=== PATIENT | female | born 1990 | race American Indian/Alaskan Native ===

== ENCOUNTER 2017-01-20 17:27 | Inpatient (IN) | payer MEDICAID ==
[2017-01-20] MEDS ORDERED: LACTATED RINGERS 500 ML IV ONE (17:30)
[2017-01-20 18:00] LABS: Bilirubin,Urine NEG (Negative); Blood,Urine SM (Negative); Ketones,Urine NEG (Negative); Leukocyte Esterase,Urine NEG (Negative); Nitrite,Urine NEG (Negative); Protein,Urine <15 mg/dL mg/dL (Negative); Urobilinogen,Urine < 2.0 mg/dL (<2.0); WBC,Urine < 1.0 /HPF (0.0-6.0)
[2017-01-20] MEDS ORDERED: SUDAFED PO PRN (21:05)
[2017-01-20] MEDS ORDERED: DEEP SEA NS PRN (21:05)
[2017-01-20] MEDS ORDERED: MYLICON PO PRN (21:05)
[2017-01-20] MEDS ORDERED: MAGNESIUM SULFATE 4GM/100ML 4 GM/100 ML BAG IV ONE (21:05)
[2017-01-20] MEDS ORDERED: BENADRYL PO PRN (21:05)
[2017-01-20] MEDS ORDERED: ROBITUSSIN DM PO PRN (21:05)
[2017-01-20] MEDS ORDERED: MILK OF MAGNESIA PO PRN (21:05)
[2017-01-20] MEDS ORDERED: ALUM-MAG HYDROX-SIMETH 200-200-20MG/5ML PO PRN (21:05)
--- NOTE | 2017-01-20 21:12 | History and Physical Report ---
History of Present Illness Date of examination: 01/20/17 Chief complaint: I have pressure History of present illness: Patient is a 26 year old who presents at 30.5 weeks with complaint of vaginal pressure and contractions. Patient has a history of a delivery at 33 weeks. She also has a history of an IUFD at 35 weeks. Her records are not available for review. Past History Past Medical History: no pertinent history Family/Genetic History: none Social history: single - Obstetrical History Expected Date of Delivery: 03/26/17 Actual Gestation: 30 Week(s) 5 Day(s) : 5 Para: 4 Hx # Term Pregnancies: 2 Number of Pregnancies: 2 Number of Living Children: 3 Medications and Allergies Allergies Allergy/AdvReac Type Severity Reaction Status Date / Time No Known Allergies Allergy Verified 01/20/17 17:29 Home Medications Medication Instructions Recorded Confirmed Last Taken Type HYDROcodone/APAP 5-325 [[place] 1 each PO Q6HR PRN #20 tablet 03/11/16 Unknown Rx 5/325] Ibuprofen [Motrin] 800 mg PO Q6HR PRN #30 tablet 03/11/16 Unknown Rx Active Meds: Active Medications Lactated Ringer's (Lactated Ringers) 1,000 mls @ 75 mls/hr IV DIRECT LOTUS - Vital Signs Vital signs: Vital Signs Pulse Pulse Ox 87 99 01/20/17 17:27 01/20/17 17:27 Temp Pulse Resp BP Pulse Ox 97.6 F 88 20 114/68 97 01/20/17 17:41 01/20/17 20:14 01/20/17 17:41 01/20/17 17:41 01/20/17 20:14 - Physical Exam Cardiovascular: Regular rate, Normal S1, Normal S2 Lungs: Positive: Clear to auscultation Abdomen: Positive: normal appearance, soft, normal bowel sounds Genitourinary (Female): Positive: normal external genitalia, normal perenium Vagina: Positive: normal moisture Uterus: Positive: normal size, normal contour - Obstetrical Cervical Dilatation: 3 Cervical Effacement Percentage: 70 station: -3 Uterine Contraction Pattern: Irregular Uterine Tone Measurement Phase: Resting Uterine Contraction Intensity: Mild Results Abnormal lab results 01/20/17 Range/Units 17:30 Urine pH 8.0 H (5.0-7.0) All other labs normal. Assessment and Plan IUP at 30.5 here with labor and cervical dilation. Admit for management of labor.Give steroids. Will begin mag. Bedrest. Consult NICU.
[2017-01-20] MEDS ORDERED: CELESTONE SOLUSPAN IM ONE (21:17)
[2017-01-20 21:30] LABS: Hematocrit 34.7 % (30.3-42.9); Hemoglobin 11.6 gm/dl (10.1-14.3); Mean Corpuscular HGB Conc 34 % (30-34); Mean Corpuscular Hemoglobin 34 pg (28-32); Mean Corpuscular Volume 102 fl (79-97); Red Blood Count 3.39 M/mm3 (3.65-5.03); Red Cell Distribution Width 12.7 % (13.2-15.2); White Blood Count 11.3 K/mm3 (4.5-11.0)
[2017-01-20] MEDS ORDERED: CELESTONE SOLUSPAN IM SCH (21:30)
[2017-01-20 21:32] LABS: Platelet Count 171 K/mm3 (140-440)
[2017-01-20 21:37] LABS: Urine Drugs of Abuse Note Disclamer
[2017-01-20] MEDS: LACTATED RINGERS 1,000 ML IV SCH (22:48)
[2017-01-20 22:59] LABS: Basophils % (Auto) 0.3 % (0.0-1.8); Eosinophils % (Auto) 0.2 % (0.0-4.3); Hematocrit 32.7 % (30.3-42.9); Hemoglobin 10.7 gm/dl (10.1-14.3); Mean Corpuscular HGB Conc 33 % (30-34); Mean Corpuscular Hemoglobin 34 pg (28-32); Mean Corpuscular Volume 104 fl (79-97); Platelet Count 168 K/mm3 (140-440); Red Blood Count 3.16 M/mm3 (3.65-5.03); Red Cell Distribution Width 12.8 % (13.2-15.2); White Blood Count 14.1 K/mm3 (4.5-11.0)
[2017-01-20] MEDS: MAGNESIUM SULFATE 40GM/1000ML 40 GM/1,000 ML BAG IV SCH (23:26)
[2017-01-21] MEDS: AMBIEN PO PRN ×2 (03:17→23:51)
[2017-01-21] MEDS: TYLENOL PO PRN (08:32)
[2017-01-21] MEDS: PRENATAL VITAMIN PO SCH (10:05)
[2017-01-21] MEDS ORDERED: EMLA TP ONE (11:17)
[2017-01-21] MEDS: LACTATED RINGERS 1,000 ML IV SCH ×2 (11:30→23:52)
[2017-01-21] MEDS ORDERED: EMLA TP NR (12:00)
[2017-01-21] MEDS: MAGNESIUM SULFATE 40GM/1000ML 40 GM/1,000 ML BAG IV SCH (14:08)
--- NOTE | 2017-01-21 22:46 | Progress Note ---
Assessment and Plan HD 1 for this at 30.6 weeks for labor. Patient is currently on mag therapy. She had one dose of steroids last night and will receive her second one this evening. Will also discontinue the magnesium tonight. Continue current management. Subjective - Subjective Date of service: 01/21/17 Interval history: Patient is a 26 year old who presents at 30.5 weeks with complaint of vaginal pressure and contractions. Patient has a history of a delivery at 33 weeks. She also has a history of an IUFD at 35 weeks. Her records are not available for review. Patient reports: new complaints (headache) Objective - Vital Signs Vital Signs: Vital Signs - 12hr 01/21/17 01/21/17 01/21/17 11:30 12:30 12:33 Temperature 97.2 F L Pulse Rate 100 H 90 86 Respiratory 18 Rate Blood Pressure 115/59 111/65 111/65 O2 Sat by Pulse 100 Oximetry 01/21/17 01/21/17 01/21/17 13:30 14:30 15:31 Temperature Pulse Rate 94 H 96 H 105 H Respiratory Rate Blood Pressure 109/65 106/59 105/46 O2 Sat by Pulse Oximetry 01/21/17 01/21/17 01/21/17 16:30 19:20 19:21 Temperature 97.1 F L Pulse Rate 83 102 H 102 H Respiratory 18 Rate Blood Pressure 116/61 114/60 114/60 O2 Sat by Pulse Oximetry 01/21/17 01/21/17 20:57 21:56 Temperature Pulse Rate 105 H 110 H Respiratory Rate Blood Pressure 110/62 93/53 O2 Sat by Pulse Oximetry - Exam Breasts: deferred Cardiovascular: Regular rate, Normal S1, Normal S2 Lungs: Clear to auscultation Abdomen: Present: normal appearance, soft, normal bowel sounds Uterus: Present: normal, firm, fundal height above umbilicus FHR: auscultation normal Uterine Contraction Pattern: Absent (occasional) Uterine Tone Measurement Phase: Resting Uterine Contraction Intensity: Mild Extremities: normal Deep Tendon Reflex Grade: Normal +2 - Labs Labs: Abnormal Labs 01/20/17 01/20/17 01/20/17 17:30 20:45 21:34 WBC 11.3 H 14.1 H RBC 3.39 L 3.16 L MCV 102 H 104 H MCH 34 H 34 H RDW 12.7 L 12.8 L [place] # 1.0 H Seg Neutrophils % 73.8 H Seg Neutrophils # 10.4 H Magnesium Urine pH 8.0 H 01/21/17 19:58 WBC RBC MCV MCH RDW [place] # Seg Neutrophils % Seg Neutrophils # Magnesium 5.90 H Urine pH Laboratory Results - last 24 hr 01/20/17 01/21/17 21:34 19:58 WBC 14.1 H RBC 3.16 L Hgb 10.7 Hct 32.7 MCV 104 H MCH 34 H MCHC 33 RDW 12.8 L Plt Count 168 Lymph % (Auto) 18.4 [place] % (Auto) 7.3 Eos % (Auto) 0.2 Baso % (Auto) 0.3 Lymph # 2.6 [place] # 1.0 H Eos # 0.0 Baso # 0.0 Seg Neutrophils % 73.8 H Seg Neutrophils # 10.4 H Magnesium 5.90 H
--- NOTE | 2017-01-22 07:48 | Ultrasound Report ---
ULTRASOUND OB FOLLOWUP History: well-being. Technique: Transabdominal ultrasound with Doppler interrogation. Gestation: Single Position: Cephalic Amniotic Fluid: Normal ROSA ELENA = 15.1 cm Placenta: Fundal Placental Grade: 1 Heart Rate: 152 BPM BPD: 7.8 cm = 31 w 1 d HC: 28.1 cm = 30 w 5 d AC: 26.5 cm = 30 w 4 d FL: 5.9 cm = 30 w 4 d HC/AC Ratio: 1.06 Estimated Weight: 1626 grams LMP: Uncertain US Gest. Age = 30 w 5 d EDC: 03/26/17
[2017-01-22] MEDS: LACTATED RINGERS 1,000 ML IV SCH ×3 (08:27→22:59)
--- NOTE | 2017-01-22 08:52 | Progress Note ---
Assessment and Plan A: IUP at 31w0d, labor s/p magnesium and 2 doses of betamethasone P: Procardia tocolysis. MFM consult. Continue observation. Subjective - Subjective Date of service: 01/22/17 Principal diagnosis: 1) IUP at 31w0d 2) Labor Interval history: Pt feels contra Patient reports: contractions (irregular ), no new complaints Objective - Vital Signs Vital Signs: Vital Signs - 12hr 01/21/17 01/21/17 01/21/17 20:57 21:00 21:56 Temperature 97.6 F Pulse Rate 105 H 105 H 110 H Respiratory 18 Rate Blood Pressure 110/62 110/62 93/53 01/21/17 01/21/17 01/22/17 22:56 23:56 00:00 Temperature 97.2 F L Pulse Rate 101 H 104 H 104 H Respiratory 18 Rate Blood Pressure 116/57 117/67 117/67 01/22/17 01/22/17 01/22/17 00:56 01:56 02:56 Temperature Pulse Rate 105 H 107 H 105 H Respiratory Rate Blood Pressure 99/50 107/56 109/57 01/22/17 01/22/17 01/22/17 03:56 04:34 04:35 Temperature 97.2 F L Pulse Rate 97 H 95 H 95 H Respiratory 18 Rate Blood Pressure 110/52 122/56 122/56 01/22/17 08:01 Temperature 97.5 F L Pulse Rate 80 Respiratory 18 Rate Blood Pressure 114/58 - Exam Breasts: deferred Cardiovascular: Regular rate Lungs: Clear to auscultation Abdomen: Present: soft Uterus: Present: normal (gravid ) FHR: auscultation normal Uterine Contraction Monitor Mode: External Uterine Contraction Pattern: Irregular Uterine Tone Measurement Phase: Resting Extremities: normal - Labs Labs: Abnormal Labs 01/20/17 01/20/17 01/20/17 17:30 20:45 21:34 WBC 11.3 H 14.1 H RBC 3.39 L 3.16 L MCV 102 H 104 H MCH 34 H 34 H RDW 12.7 L 12.8 L [place] # 1.0 H Seg Neutrophils % 73.8 H Seg Neutrophils # 10.4 H Magnesium Urine pH 8.0 H 01/21/17 19:58 WBC RBC MCV MCH RDW [place] # Seg Neutrophils % Seg Neutrophils # Magnesium 5.90 H Urine pH Laboratory Results - last 24 hr 01/21/17 19:58 Magnesium 5.90 H
[2017-01-22] MEDS: PROCARDIA*For Tocolysis only PO SCH ×3 (09:18→21:46)
[2017-01-22] MEDS: PRENATAL VITAMIN PO SCH (09:18)
--- NOTE | 2017-01-22 15:18 | Admit Criteria Form ---
Admission Criteria Documentation: LABOR, THREATENED Clinical Indications for Admission to Inpatient Care (Place 'X' for any and all applicable criteria): Admission to inpatient status for two mid-nights or more is indicated for ANY ONE of the following 1,2,3: [ ]I. Condition requiring premature delivery (eg, premature rupture of membranes with nonreassuring status, chorioamnionitis) [A]. See Vaginal Delivery guideline as appropriate [ ]II. premature rupture of membranes (PPROM) (eg, for monitoring of well-being, development of chorioamnionitis)[A][B] [ ]III. distress or demise [ ]IV. Significant maternal disease (eg, infection) identified (eg, pyelonephritis, pneumonia) that requires initial inpatient treatment (eg, IV antibiotics, close monitoring) [ ]V. Significant vaginal bleeding or any vaginal bleeding with known placental previa, vasa previa, or placenta accreta.(7)(8) See Delivery guideline as appropriate. [ ]. Complications of tocolytic treatment (eg, pulmonary edema, hypotension) (9)(10) [X ]VII. Inpatient admission required rather than observation care (Also use Labor, Threatened: Observation Care Criteria as appropriate) because of 1 or more of the following: []a) Continued monitoring that requires inpatient care [ X]b) Tocolytic therapy needed that requires inpatient care [ ]c) Inability to stop labor. See Vaginal Delivery or Delivery guideline as appropriate. Extended stay beyond goal length of stay may be needed for (1)(2) [ ]a) Significant infection (eg, pneumonia,chorioamnionitis)(17) [ ]b) Continued uterine contractions [ ]c) demise [ ]d) Continued vaginal bleeding or placental abnormality [ ]e) Complications of tocolytic treatment (eg, pulmonary edema, hypotension)( 15) [ ]f) Expectant management of premature rupture of membranes[A] The original [employer] content created by Talya Ryan has been revised. The portions of the content which have been revised are identified through the use of italic text or in bold, and Talya Ryan has neither reviewed nor approved the modified material. All other unmodified content is copyright [facility]. Please see references footnoted in the original [facility] edition 2017 Admission Criteria Met: Yes
[2017-01-22] MEDS: COLACE PO PRN (15:36)
--- NOTE | 2017-01-22 18:38 | Consultation ---
History of Present Illness Consult date: 01/22/17 Requesting physician: CHELSEA JANSEN Reason for consult: contractions History of present illness: Admission Diagnosis: Patient is a 26 year old who presents at 31 weeks with complaint of vaginal pressure and contractions. Patient has a history of a delivery at 33 weeks. She also has a history of an IUFD at 35 weeks. Her records are not available for review. labor s/p previous admission with betamethasone x 2 and magensium administration. Nausea and Vomiting. Patient describes contractions over the last 3-4 days. She denies vaginal bleeding or fluid leakage per vagina. Patient describes improvement in symptoms from admission. SVE: 3 cm. Past History Past Medical History: no pertinent history Family/Genetic History: none - Obstetrical History : 5 Medications and Allergies Allergies Allergy/AdvReac Type Severity Reaction Status Date / Time No Known Allergies Allergy Verified 01/20/17 17:29 Home Medications Medication Instructions Recorded Confirmed Last Taken Type HYDROcodone/APAP 5-325 [[place] 1 each PO Q6HR PRN #20 tablet 03/11/16 Unknown Rx 5/325] Ibuprofen [Motrin] 800 mg PO Q6HR PRN #30 tablet 03/11/16 Unknown Rx Active Meds: Active Medications Acetaminophen (Tylenol) 650 mg PO Q4H PRN PRN Reason: Pain MILD(1-3)/Fever >100.5/CUELLAR Last Admin: 01/21/17 08:32 Dose: 650 mg Al Hydrox/Mg Hydrox/Simethicone (Alum-Mag Hydrox-Simeth [phone]/5ml) 30 ml PO Q6H PRN PRN Reason: Indigestion Diphenhydramine HCl (Benadryl) 25 mg PO Q6H PRN PRN Reason: Itching Docusate Sodium (Colace) 100 mg PO Q12H PRN PRN Reason: Constipation Last Admin: 01/22/17 15:36 Dose: 100 mg Guaifenesin (Robitussin Dm) 10 ml PO Q6H PRN PRN Reason: Cough Lactated Ringer's (Lactated Ringers) 1,000 mls @ 75 mls/hr IV DIRECT LOTUS Last Admin: 01/22/17 15:37 Dose: 75 mls/hr Lactated Ringer's (Lactated Ringers) 1,000 mls @ 125 mls/hr IV DIRECT LOTUS Magnesium Hydroxide (Milk Of Magnesia) 30 ml PO QHS PRN PRN Reason: Laxative Effect Multivitamins/Iron/Calcium ( Vitamin) 1 each PO QDAY [facility] Last Admin: 01/22/17 09:18 Dose: 1 each Nifedipine (Procardia*For Tocolysis Only*) 10 mg PO TID [facility] Last Admin: 01/22/17 14:52 Dose: 10 mg Pseudoephedrine HCl (Sudafed) 30 mg PO Q4H PRN PRN Reason: Nasal Congestion Simethicone (Mylicon) 80 mg PO Q6H PRN PRN Reason: Gas pain Sodium Chloride (Deep Sea) 2 spray NS Q4H PRN PRN Reason: Congestion Zolpidem Tartrate (Ambien) 10 mg PO ONCE PRN PRN Reason: Sleep Last Admin: 01/21/17 03:17 Dose: 10 mg - Vital Signs Vital signs: Vital Signs Pulse Pulse Ox 87 99 01/20/17 17:27 01/20/17 17:27 Temp Pulse Resp BP Pulse Ox 98.4 F 89 18 108/55 97 01/22/17 15:40 01/22/17 17:01 01/22/17 15:40 01/22/17 15:40 01/22/17 17:01 Results Result Diagrams: 01/20/17 21:34 Abnormal lab results 01/21/17 Range/Units 19:58 Magnesium 5.90 H (1.7-2.3) mg/dL All other labs normal. Assessment and Plan ASSESSMENT: * IUP at 31 weeks. * labor s/p previous admission with betamethasone x 2 and magensium administration * Rule out labor. RECOMMENDATIONS & CONSULTATION: * Magnesium sulfate tocolysis * Betamethasone 12 mg IM x 1 dose since last dose more than 7 days ago * Ultrasound for presentation and well being * Closely monitor maternal and status * Call [facility] PRN a change in maternal or status. Thank you for allowing us to participate in the care of this patient. We look forward to the opportunity to assist in her continued management. If you have any questions, please contact our office at [phone]. Chuk[place]uma I. Onyeije, M.D.
[2017-01-22] MEDS: AMBIEN PO PRN (22:58)
[2017-01-23] MEDS: LACTATED RINGERS 1,000 ML IV SCH ×2 (08:16→18:37)
[2017-01-23] MEDS: PROCARDIA*For Tocolysis only PO SCH ×3 (08:16→22:55)
[2017-01-23] MEDS: PRENATAL VITAMIN PO SCH (10:53)
--- NOTE | 2017-01-23 17:14 | Progress Note ---
Assessment and Plan - Patient Problems (1) labor Current Visit: Yes Status: Acute Qualifiers: labor trimester: P labor delivery status: P Fetus number : F Plan to address problem: secondary to the frequency of the contraction pattern, will continue to monitor patient as inpatient for now Subjective - Subjective Date of service: 01/23/17 Principal diagnosis: 1) IUP at 31w0d 2) Labor Interval history: 26y/o @ 31+ weeks admitted for labor. The patient has completed steroid series and magnesium tocolysis. Today she complains of intermittent contractions. [place] this am demonstrated contractions every 4-6 min. She denies any vaginal bleeding or LOF. Patient reports: contractions (irregular ), no new complaints Objective - Vital Signs Vital Signs: Vital Signs - 12hr 01/23/17 01/23/17 01/23/17 08:00 08:19 11:37 Temperature 97.4 F L Pulse Rate 90 90 95 H Respiratory 20 Rate Blood Pressure 108/57 108/57 106/55 - Labs Labs: Abnormal Labs 01/20/17 01/20/17 01/20/17 17:30 20:45 21:34 WBC 11.3 H 14.1 H RBC 3.39 L 3.16 L MCV 102 H 104 H MCH 34 H 34 H RDW 12.7 L 12.8 L [place] # 1.0 H Seg Neutrophils % 73.8 H Seg Neutrophils # 10.4 H Magnesium Urine pH 8.0 H 01/21/17 19:58 WBC RBC MCV MCH RDW [place] # Seg Neutrophils % Seg Neutrophils # Magnesium 5.90 H Urine pH
[2017-01-24] MEDS: AMBIEN PO PRN (00:39)
[2017-01-24] MEDS: PROCARDIA*For Tocolysis only PO SCH ×2 (08:04→14:51)
[2017-01-24] MEDS: TYLENOL PO PRN (08:04)
[2017-01-24] MEDS: COLACE PO PRN (09:48)
[2017-01-24] MEDS: PRENATAL VITAMIN PO SCH (09:48)
--- NOTE | 2017-01-24 13:33 | Progress Note ---
Assessment and Plan A/P ASSESSMENT: * IUP at 31+1 weeks. * labor s/p previous admission with betamethasone x 2 and magensium administration * Rule out labor. * Magnesium sulfate tocolysis * Betamethasone 12 mg IM x 1 dose since last dose more than 7 days ago * Closely monitor maternal and status * Await M for recommendations Subjective - Subjective Date of service: 01/24/17 Principal diagnosis: 1) IUP at 31w0d 2) Labor Patient reports: contractions (irregular ), no new complaints, no vaginal bleeding Objective - Vital Signs Vital Signs: Vital Signs - 12hr 01/24/17 01/24/17 01/24/17 06:16 07:29 07:31 Temperature 98.5 F Pulse Rate 90 86 86 Respiratory 18 Rate Blood Pressure 110/56 107/57 107/57 01/24/17 01/24/17 12:14 12:17 Temperature 98.4 F Pulse Rate 94 H 94 H Respiratory 18 Rate Blood Pressure 108/68 108/68 - Exam Breasts: normal Cardiovascular: Regular rate, Normal S1 Lungs: Clear to auscultation, Normal air movement Abdomen: Present: normal appearance, soft, normal bowel sounds. Absent: distention, tenderness Vulva: both: normal Uterus: Present: normal, firm, fundal height above umbilicus. Absent: bogginess , tenderness FHR: category 1 Uterine Contraction Monitor Mode: External Cervical Dilatation: 3 Uterine Contraction Pattern: Irregular Uterine Contraction Intensity: Mild Extremities: normal Deep Tendon Reflex Grade: Normal +2 - Labs Labs: Abnormal Labs 01/20/17 01/20/17 01/20/17 17:30 20:45 21:34 WBC 11.3 H 14.1 H RBC 3.39 L 3.16 L MCV 102 H 104 H MCH 34 H 34 H RDW 12.7 L 12.8 L [place] # 1.0 H Seg Neutrophils % 73.8 H Seg Neutrophils # 10.4 H Magnesium Urine pH 8.0 H 01/21/17 19:58 WBC RBC MCV MCH RDW [place] # Seg Neutrophils % Seg Neutrophils # Magnesium 5.90 H Urine pH
--- NOTE | 2017-01-24 13:46 | Event Note ---
Date: 01/24/17 patient without complaints NST cat 1 Pelvic 2- /high continue continuous efm continue procardia as prescribed await MFM recommendations
[2017-01-24 16:14] VITALS: BP 102/55
--- NOTE | 2017-01-24 16:32 | Consultation ---
History of Present Illness Consult date: 01/24/17 Reason for consult: contractions History of present illness: Consulting Physician: Jj Duque M.D. Admitting Physicians: Dr. Lizzie Baxter Admission Diagnosis: Patient is a 26 year old who presents at 31 weeks with complaint of vaginal pressure and contractions. Patient has a history of a delivery at 33 weeks. She also has a history of an IUFD at 35 weeks. Her records are not available for review. labor s/p previous admission with betamethasone x 2 and magensium administration. Nausea and Vomiting. Patient describes contractions over the last 3-4 days. She denies vaginal bleeding or fluid leakage per vagina. Patient describes improvement in symptoms from admission. Past History Past Medical History: no pertinent history Family/Genetic History: none - Obstetrical History : 5 Medications and Allergies Allergies Allergy/AdvReac Type Severity Reaction Status Date / Time No Known Allergies Allergy Verified 01/20/17 17:29 Home Medications Medication Instructions Recorded Confirmed Last Taken Type HYDROcodone/APAP 5-325 [[place] 1 each PO Q6HR PRN #20 tablet 03/11/16 01/23/17 Unknown Rx 5/325] Ibuprofen [Motrin] 800 mg PO Q6HR PRN #30 tablet 03/11/16 01/23/17 Unknown Rx NIFEdipine 10 mg PO TID #90 cap 01/23/17 Unknown Rx Active Meds: Active Medications Acetaminophen (Tylenol) 650 mg PO Q4H PRN PRN Reason: Pain MILD(1-3)/Fever >100.5/CUELLAR Last Admin: 01/24/17 08:04 Dose: 650 mg Al Hydrox/Mg Hydrox/Simethicone (Alum-Mag Hydrox-Simeth [phone]/5ml) 30 ml PO Q6H PRN PRN Reason: Indigestion Diphenhydramine HCl (Benadryl) 25 mg PO Q6H PRN PRN Reason: Itching Docusate Sodium (Colace) 100 mg PO Q12H PRN PRN Reason: Constipation Last Admin: 01/24/17 09:48 Dose: 100 mg Guaifenesin (Robitussin Dm) 10 ml PO Q6H PRN PRN Reason: Cough Lactated Ringer's (Lactated Ringers) 1,000 mls @ 75 mls/hr IV DIRECT [facility] Last Admin: 01/22/17 15:37 Dose: 75 mls/hr Lactated Ringer's (Lactated Ringers) 1,000 mls @ 125 mls/hr IV DIRECT [facility] Last Admin: 01/23/17 18:37 Dose: 125 mls/hr Magnesium Hydroxide (Milk Of Magnesia) 30 ml PO QHS PRN PRN Reason: Laxative Effect Multivitamins/Iron/Calcium ( Vitamin) 1 each PO QDAY [facility] Last Admin: 01/24/17 09:48 Dose: 1 each Nifedipine (Procardia*For Tocolysis Only*) 10 mg PO TID [facility] Last Admin: 01/24/17 14:51 Dose: 10 mg Pseudoephedrine HCl (Sudafed) 30 mg PO Q4H PRN PRN Reason: Nasal Congestion Simethicone (Mylicon) 80 mg PO Q6H PRN PRN Reason: Gas pain Sodium Chloride (Deep Sea) 2 spray NS Q4H PRN PRN Reason: Congestion Zolpidem Tartrate (Ambien) 10 mg PO ONCE PRN PRN Reason: Sleep Last Admin: 01/24/17 00:39 Dose: 10 mg - Vital Signs Vital signs: Vital Signs Pulse Pulse Ox 87 99 01/20/17 17:27 01/20/17 17:27 Temp Pulse Resp BP Pulse Ox 98.3 F 100 H 18 102/55 98 01/24/17 16:15 01/24/17 16:15 01/24/17 16:15 01/24/17 16:15 01/23/17 04:11 Results Result Diagrams: 01/20/17 21:34 All other labs normal. Assessment and Plan ASSESSMENT: IUP at 31 weeks. labor s/p previous admission with betamethasone x 2 and magensium administration Rule out labor. FHR tracing Category 2; now category 1 Given the current findings, the likelihood for imminent premature delivery appears small. RECOMMENDATIONS 1. Current symptoms and objective findings place this patient at risk for . 2. Based on her EGA we are in agreement with steroids to enhance lung maturation (previously performed) 3. Monitor for continued contractions. 4. I would discourage use of tocolysis at this gestational age due to the risk /benefit equations for these medications at this gestational age. 5. Patient has completed the course of steroids to enhance lung maturity 6. Please consider discharging patient home and schedule a follow-up appointment with [facility] within one week if stable in 24 hours.. 7. Proceed with delivery for obstetrical indications or progressive labor. Thank you for allowing us to participate in the care of this patient. We look forward to the opportunity to assist in her continued management. If you have any questions, please contact our office at [phone]. Jj Duque M.D.
--- NOTE | 2017-01-24 17:34 | Discharge Summary ---
Providers - Providers Date of Admission: 01/20/17 21:07 Date of discharge: 01/24/17 Attending physician: CHELSEA JANSEN 01/20/17 Consult to Case Management [CONS] Routine Services Needed at Discharge: Home Health Services Notified:: CANDY Phone number called:: [phone] Was contact made?: Yes If yes, spoke with:: CANDY Time called:: 11:50 01/22/17 08:52 Consult to Physician [CONS] Routine Consulting Provider: CORBY EVANS Reason For Exam: IUP at 30 wks, labor Place consult to:: SAMANTHA Notified:: OFFICE Phone number called:: [phone] Was contact made?: Yes If yes, spoke with:: LYUDMILA Time called:: 11:50 Primary care physician: IRA KNOX Hospitalization Reason for admission: labor Hospital course: Patient was admitted and noted to be dilated and masha. She was given steroids and mag and started on procardia. The patient did well for >24 hrs and found to be stable. She is discharged home in stable condition to followup with [facility] in 1 week and [facility]. Discharged home in stable condition Disposition: DC-30 STILL A PATIENT Plan - Discharge Medications Prescriptions: NIFEdipine 10 mg PO TID #90 cap - Provider Discharge Summary Activity: routine Diet: routine Instructions: routine Additional instructions: [] Smoking cessation referral if applicable(refer to patient education folder for contact #) [] Refer to [facility]'s [facility] Booklet Call your doctor immediately for: * Fever > 100.5 * Heavy vaginal bleeding ( >1 pad per hour) * Severe persistent headache * Shortness of breath * Reddened, hot, painful area to leg or breast * Drainage or odor from incision. * Keep incision clean and dry at all times and follow doctor's instructions regarding bathing/showering - Follow up plan Follow up: IRA KNOX MD [Primary Care Provider] - 7 Days Forms: [facility] Discharge Summary, Work/School Excuse Out Patient, Work/School Release Form
== END 2017-01-24 18:50 | disposition home or self-care (01) | DRG 778 ==
LOC: TRG 17:27 → LD 21:07
PROVIDERS: ADMIT Obstetrics & Gynecology; ATTEND Obstetrics & Gynecology
DX: O60.03 Preterm labor without delivery, third trimester (principal); Z3A.31 31 weeks gestation of pregnancy
CPT/HCPCS: 36415; 59025; 76816; 80307; 81001; 83735; 85025; 85027; 86850; 86900; 86901; 96360; 96361; J0702; J3475; J7120

== ENCOUNTER 2017-02-08 00:31 | Inpatient (IN) | payer MEDICAID ==
[2017-02-08] MEDS ORDERED: COLACE PO PRN (01:27)
[2017-02-08] MEDS ORDERED: BENADRYL PO PRN ×2 (01:27→12:34)
[2017-02-08] MEDS ORDERED: TYLENOL PO PRN ×2 (01:27→12:34)
[2017-02-08] MEDS ORDERED: AMBIEN PO PRN (01:27)
[2017-02-08] MEDS ORDERED: DEEP SEA NS PRN (01:27)
[2017-02-08] MEDS ORDERED: CELESTONE SOLUSPAN IM ONE (01:27)
[2017-02-08] MEDS ORDERED: MYLICON PO PRN (01:27)
[2017-02-08] MEDS ORDERED: ZOFRAN IV PRN ×2 (01:27→12:34)
[2017-02-08] MEDS: POLYCILLIN/NS 2 GM/100 ML 2 GM/100 ML BAG IV SCH ×2 (02:00→07:48)
[2017-02-08] MEDS: ERYTHROMYCIN LACTOBIONATE 250 MG in NACL 0.9% 100 ML IV SCH ×2 (02:00→08:50)
[2017-02-08 02:09] LABS: Basophils % (Auto) 0.3 % (0.0-1.8); Eosinophils % (Auto) 0.5 % (0.0-4.3); Hematocrit 31.8 % (30.3-42.9); Hemoglobin 10.9 gm/dl (10.1-14.3); Mean Corpuscular HGB Conc 34 % (30-34); Mean Corpuscular Hemoglobin 35 pg (28-32); Mean Corpuscular Volume 101 fl (79-97); Platelet Count 160 K/mm3 (140-440); Red Blood Count 3.15 M/mm3 (3.65-5.03); Red Cell Distribution Width 12.8 % (13.2-15.2); White Blood Count 9.4 K/mm3 (4.5-11.0)
[2017-02-08] MEDS: LACTATED RINGERS 1,000 ML IV SCH ×2 (02:09→09:14)
--- NOTE | 2017-02-08 07:26 | Ultrasound Report ---
ULTRASOUND BIOPHYSICAL PROFILE: History: well being, premature rupture of membranes Technique: Transabdominal ultrasound with Doppler interrogation. 2 - breathing movements 2 - movements 2 - posture and tone 2 - Qualitative amniotic fluid volume 8 - TOTAL SCORE OF POSSIBLE 8 Heart Rate (bpm) 137
[2017-02-08] MEDS ORDERED: PITOCin/NS 20 UNIT/1000ML DRIP 20,000 MILLIUNITS/1,000 ML BAG IV ONE (07:52)
[2017-02-08] MEDS ORDERED: SUBLIMAZE IV ONE (07:57)
[2017-02-08] MEDS ORDERED: SUBLIMAZE ONE (07:59)
--- NOTE | 2017-02-08 09:08 | Ultrasound Report ---
OB ULTRASOUND FOLLOWUP History: Premature rupture of membranes. Technique: Transabdominal ultrasound with Doppler interrogation. Gestation: Single Position: Cephalic Amniotic Fluid: Normal ROSA ELENA = 11.9 cm Placenta: Anterior Placental Grade: 2 Heart Rate: 130 BPM Cervical length: 2.7 cm (Normal > 3 cm) BPD: 8.5 cm = 34 w 1 d HC: 31.2 cm = 34 w 6 d AC: 28.3 cm = 32 w 2 d FL: 6.6 cm = 34 w 0 d HC/AC Ratio: 1.1 Cephalic Index: 78.6 Estimated Weight: 2147 grams LMP: 06/19/16 Clinical age = 33 w 3 d EDC: 03/26/17 US Gest. Age = 33 w 6 d EDC: 03/23/17
--- NOTE | 2017-02-08 09:11 | Anesthesia Consultation ---
Anesthesia Consult and Med Hx Date of service: 02/08/17 - Airway Anesthetic Teeth Evaluation: Good ROM Head & Neck: Adequate Mental/Hyoid Distance: Adequate Mallampati Class: Class II Intubation Access Assessment: Probably Good - Pre-Operative Health Status ASA Pre-Surgery Classification: ASA2 Proposed Anesthetic Plan: Epidural, Spinal - Pulmonary Hx Asthma: No COPD: No Hx Pneumonia: No - Cardiovascular System Hx Hypertension: No - Central Nervous System Hx Seizures: No Hx Psychiatric Problems: No - Endocrine Hx Renal Disease: No Hx End Stage Renal Disease: No Hx Hypothyroidism: No Hx Hyperthyroidism: No - Hematic Hx Anemia: No Hx Sickle Cell Disease: No - Other Systems Hx Alcohol Use: No
--- NOTE | 2017-02-08 09:22 | History and Physical Report ---
History of Present Illness Date of examination: 02/08/17 Date of admission: 02/08/17 00:47 Chief complaint: my water broke History of present illness: Pt is a 26 year old female ALFONSO 03/26/17 at 33w3d who presents complaining of rupture of membranes since 1210 am. She was founf to be 4 cm on admission and rapidly progressed to 8 cm. She denies vaginal bleeding. She has had limited care at [facility] complicated by late entry to care at 15 wks, no visits between 15 and 28 wks, h/o IUFD at 35 wks, h/ o at 33 wks, 01/18 shortened cervix on ultrasound, and 01/24 admitted to [facility] for labor with arrest at 3 cm (given two doses of betamethasone and magnesium sulfate). She is GBS unknown. Pt was started on Ampicillin and Erythromycin for latency prior to having contractions. Past History Past Medical History: renal disease (nephrolithiasis ), migraines Past Surgical History: no surgical history [employer] History: chlamydia (remote, treated ) Family/Genetic History: hypertension, cancer Social history: no significant social history - Obstetrical History Expected Date of Delivery: 03/26/17 Actual Gestation: 33 Week(s) 3 Day(s) : 6 Para: 4 Hx # Term Pregnancies: 2 Number of Pregnancies: 2 Spontaneous Abortions: 1 Induced : 0 Number of Living Children: 3 Medications and Allergies Allergies Allergy/AdvReac Type Severity Reaction Status Date / Time No Known Allergies Allergy Verified 01/20/17 17:29 Home Medications Medication Instructions Recorded Confirmed Last Taken Type HYDROcodone/APAP 5-325 [[place] 1 each PO Q6HR PRN #20 tablet 03/11/16 01/23/17 Unknown Rx 5/325] Ibuprofen [Motrin] 800 mg PO Q6HR PRN #30 tablet 03/11/16 01/23/17 Unknown Rx NIFEdipine 10 mg PO TID #90 cap 01/23/17 Unknown Rx Active Meds: Active Medications Acetaminophen (Tylenol) 650 mg PO Q4H PRN PRN Reason: Pain MILD(1-3)/Fever >100.5/CUELLAR Amoxicillin (Trimox) 250 mg PO Q8HR LOTUS PRN Reason: Protocol Stop: 02/15/17 05:59 Diphenhydramine HCl (Benadryl) 25 mg PO Q6H PRN PRN Reason: Itching Docusate Sodium (Colace) 100 mg PO Q12H PRN PRN Reason: Constipation Ephedrine Sulfate (Ephedrine Sulfate) 10 mg IV Q2M PRN PRN Reason: Hypotension Stop: 02/08/17 09:16 Erythromycin (Beka-Tab) 250 mg PO Q8HR LOTUS PRN Reason: Protocol Stop: 02/15/17 05:59 Ampicillin Sodium (Polycillin/Ns 2 Gm/100 Ml) 2 gm in 100 mls @ 100 mls/hr IV Q6H [facility] PRN Reason: Protocol Stop: 02/09/17 20:59 Last Admin: 02/08/17 07:48 Dose: 100 mls/hr Erythromycin Lactobionate 250 (mg/ Sodium Chloride) 100 mls @ 100 mls/hr IV Q6H [facility] PRN Reason: Protocol Stop: 02/09/17 20:59 Last Admin: 02/08/17 08:50 Dose: 100 mls/hr Lactated Ringer's (Lactated Ringers) 1,000 mls @ 125 mls/hr IV DIRECT LOTUS Last Admin: 02/08/17 09:14 Dose: 125 mls/hr Fentanyl/Bupivacaine/Sodium Chlor (Fentanyl-Bupiv 2 Mcg/Ml-0.125%) 200 mcg in 100 mls @ 12 mls/hr EPIDURAL TITR LOTUS PRN Reason: Protocol Multivitamins/Iron/Calcium ( Vitamin) 1 each PO QDAY [facility] Naloxone HCl (Narcan 2 Mg/2 Ml) 0.2 mg IV Q5M PRN PRN Reason: Respiratory sedation Stop: 02/08/17 09:22 Ondansetron HCl (Zofran) 4 mg IV Q6H PRN PRN Reason: Nausea And Vomiting Last Admin: 02/08/17 03:12 Dose: 4 mg Simethicone (Mylicon) 80 mg PO Q6H PRN PRN Reason: Gas pain Sodium Chloride ([place]) 2 spray NS Q4H PRN PRN Reason: Congestion Zolpidem Tartrate (Ambien) 10 mg PO ONCE PRN PRN Reason: Sleep Review of Systems All systems: negative - Vital Signs Vital signs: Vital Signs Temp Pulse Resp BP 98.3 F 94 H 18 105/75 02/08/17 01:10 02/08/17 01:10 02/08/17 01:10 02/08/17 01:10 Temp Pulse Resp BP Pulse Ox 98.3 F 105 H 18 108/54 94 02/08/17 01:10 02/08/17 09:14 02/08/17 07:59 02/08/17 09:02/08/17 09:09 - Physical Exam Breasts: Positive: deferred Cardiovascular: Regular rate Lungs: Positive: Clear to auscultation Abdomen: Positive: soft (gravid ) Genitourinary (Female): Positive: normal external genitalia Uterus: Positive: enlarged (gravid ) Extremities: Positive: normal - Obstetrical FHR: category 2 Uterine Contraction Monitor Mode: External Cervical Dilatation: 9.5 Cervical Effacement Percentage: 100 station: 0 Uterine Contraction Pattern: Regular Uterine Tone Measurement Phase: Resting Uterine Contraction Intensity: Strong/Firm Results Result Diagrams: 02/08/17 01:55 Abnormal lab results 02/08/17 Range/Units 01:55 RBC 3.15 L (3.65-5.03) M/mm3 MCV 101 H (79-97) fl MCH 35 H (28-32) pg RDW 12.8 L (13.2-15.2) % [place] % (Auto) 8.0 H (0.0-7.3) % All other labs normal. Assessment and Plan A: IUP at 33w3d PPROM labor GBS unknown H/o IUFD at 35 wks H/o 33 wk deliver in 2016 Insufficient care P: Admit to labor and delivery Transitional labor GBS prophylaxis Closely monitor maternal and status
[2017-02-08] MEDS ORDERED: PRENATAL VITAMIN PO SCH (10:00)
--- NOTE | 2017-02-08 10:05 | Procedure Note ---
OB Delivery Note - Delivery Date of Delivery: 02/08/17 Surgeon: CHELSEA JANSEN Estimated blood loss: 200cc - Vaginal Delivery presentation: vertex Delivery position: OA Intrapartum events: PROM->1hr before delivery, decreased FHT variability, mult.variable deceleratio Delivery induction: none Delivery monitor: external FHT, external uterine Route of delivery: Delivery placenta: spontaneous Delivery cord: nuchal cord, 3 umbilical vessels Episiotomy: none Delivery laceration: none Anesthesia: epidural Delivery comments: Pt progressed to complete/complete/0 and pushed to deliver a viable female via under epidural anesthesia over intact perineum. Head delivered in TAMY position. Nuchal cord x 1 delivered through. Shoulders and body delivered easily. placed on maternal abdomen. Cord clamped and cut and handed to NICU staff in attendance. Placenta delivered spontaneously (3VC, intact). Vagina and perineum explored. No lacerations noted. EBL 200 mL. - Infant A at 1 minute: 6 at 5 minutes: 8 Gender: Female (2051g (4lb 8oz) @ 0943am)
[2017-02-08] MEDS ORDERED: fentaNYL-BUPIV 2 MCG/ML-0.125% 200 MCG/100 ML BAG EPIDURAL SCH (10:30)
[2017-02-08] MEDS ORDERED: NARCAN 2 MG/2 ML IV PRN (10:30)
[2017-02-08] MEDS ORDERED: ePHEDrine SULFATE IV PRN (10:30)
[2017-02-08] MEDS ORDERED: DULCOLAX PR PRN (12:34)
[2017-02-08] MEDS ORDERED: TUCKS PAD TP PRN (12:34)
[2017-02-08] MEDS ORDERED: NORCO 5/325 PO PRN (12:34)
[2017-02-08] MEDS ORDERED: PHENERGAN PR PRN (12:34)
[2017-02-08] MEDS ORDERED: MILK OF MAGNESIA PO PRN (12:34)
[2017-02-08] MEDS ORDERED: PITOCin/NS 20 UNIT/1000ML DRIP 20 UNITS/1,000 ML BAG IV SCH (12:34)
[2017-02-08] MEDS ORDERED: SODIUM CHLORIDE FLUSH SYRINGE 10 ML IV NR (12:34)
[2017-02-08] MEDS ORDERED: LANSINOH TP PRN (12:34)
[2017-02-08] MEDS ORDERED: PHENERGAN PO PRN (12:34)
[2017-02-08] MEDS ORDERED: DERMOPLAST TP PRN (12:34)
[2017-02-08] MEDS: MOTRIN PO SCH ×2 (13:37→18:16)
[2017-02-08 21:47] LABS: Hematocrit 32.9 % (30.3-42.9); Hemoglobin 10.8 gm/dl (10.1-14.3)
[2017-02-09] MEDS: MOTRIN PO SCH ×3 (00:28→22:37)
[2017-02-09] MEDS: COLACE PO SCH ×3 (00:28→22:38)
[2017-02-09] MEDS: FEOSOL PO SCH ×3 (00:29→22:38)
[2017-02-09] MEDS ORDERED: M-M-R II VACCINE SUB-Q ONE (06:00)
[2017-02-09] MEDS ORDERED: BOOSTRIX IM ONE (06:00)
--- NOTE | 2017-02-09 12:46 | Progress Note ---
Subjective Date of service: 02/09/17 Interval history: 1st day after normal vaginal delivery Patient is in the bed, comfortable. Pain is well controlled with pain meds. Ambulated well. No residual neurological deficit. No anesthesia complications Objective - Constitutional Vitals: Vital Signs - 12hr 02/09/17 02/09/17 04:00 08:10 Temperature 98.4 F 98.5 F Pulse Rate 80 66 Respiratory 20 Rate Blood Pressure 104/51 95/60 [Left] - Labs CBC & Chem 7: 02/08/17 21:30
[2017-02-09] MEDS: PRENATAL VITAMIN PO SCH (13:13)
--- NOTE | 2017-02-09 13:16 | Progress Note ---
Assessment and Plan A/p IUP 33 weeks ambulating well tolerating diet pain well controlled baby in NICCU desires vasectomy for control d/c home tomorrow in stable condition f/u in 4 weeks Subjective - Subjective Date of service: 02/09/17 Principal diagnosis: PTD at 33 weeks Patient reports: appetite normal, voiding normally, pain well controlled, flatus , ambulating normally [place]: doing well, in NICU, nursing well, bottle feeding Objective - Vital Signs Latest vital signs: Vital Signs Temp Pulse Resp BP 02/09/17 08:10 98.5 F 66 95/60 02/09/17 04:00 98.4 F 80 20 104/51 02/08/17 21:23 98.7 F 77 20 97/62 02/08/17 17:25 98.4 F 76 20 100/62 Intake and Output 02/08/17 02/09/17 02/09/17 22:59 06:59 14:59 Intake Total 360 120 Output Total 600 600 Balance -240 -480 Intake: Oral 120 Intake, Free Water 360 Output: Urine 600 600 Void 600 600 Other: Total, Intake Amount 120 Total, Output Amount 600 600 - Exam Breasts: Present: normal Cardiovascular: Present: Regular rate, Normal S1 Lungs: Present: Clear to auscultation, Normal air movement Abdomen: Present: normal appearance, soft, normal bowel sounds. Absent: distention, tenderness, guarding Vulva: both: normal Uterus: Present: normal, firm, fundal height below umbilicus. Absent: bogginess , tenderness Extremities: Present: normal Deep Tendon Reflex Grade: Normal +2
--- NOTE | 2017-02-09 13:17 | Discharge Summary ---
Providers - Providers Date of Admission: 02/08/17 00:47 Date of discharge: 02/09/17 Attending physician: CHELSEA JANSEN 02/08/17 12:34 Consult to Inventory Control Supervisor [CONS] Routine Reason For Exam: assistance with , SNS Primary care physician: CHELSEA JANSEN Hospitalization Reason for admission: active labor Delivery: Episiotomy: none Laceration: none Incision: normal Other procedures: none complications: none Discharge diagnosis: delivery [place] baby: female Condition at discharge: Good Disposition: DC-01 TO HOME OR SELFCARE Plan - Discharge Medications Prescriptions: Ferrous Sulfate [Feosol 325 MG tab] 325 mg PO BID #60 tablet HYDROcodone/APAP 5-325 [[place] 5/325] 1 each PO Q6HR PRN #20 tablet PRN Reason: Pain Ibuprofen [Motrin] 600 mg PO Q6H PRN #30 tablet PRN Reason: Pain - Provider Discharge Summary Activity: routine, no sex for 6 weeks Diet: routine Instructions: routine Additional instructions: [] Smoking cessation referral if applicable(refer to patient education folder for contact #) [] Refer to [facility]'s [facility] Booklet Call your doctor immediately for: * Fever > 100.5 * Heavy vaginal bleeding ( >1 pad per hour) * Severe persistent headache * Shortness of breath * Reddened, hot, painful area to leg or breast * Drainage or odor from incision. * Keep incision clean and dry at all times and follow doctor's instructions regarding bathing/showering - Follow up plan Follow up: CHELSEA JANSEN MD [Primary Care Provider] - 03/08/17
[2017-02-10] MEDS: MOTRIN PO SCH ×3 (00:50→16:10)
[2017-02-10] MEDS ORDERED: TRIMOX PO SCH (06:00)
[2017-02-10] MEDS ORDERED: ERY-TAB PO SCH (06:00)
[2017-02-10] MEDS: PRENATAL VITAMIN PO SCH (10:52)
[2017-02-10] MEDS: FEOSOL PO SCH (10:52)
[2017-02-10] MEDS: COLACE PO SCH (16:40)
[2017-02-10 17:19] VITALS: BP 114/63
== END 2017-02-10 18:30 | disposition home or self-care (01) | DRG 775 ==
LOC: TRG 00:31 → LD 00:47 → OB 11:53
PROVIDERS: ADMIT Obstetrics & Gynecology; ATTEND Obstetrics & Gynecology
PROC: 3E0R3CZ (ICD-10-PCS; principal; 2017-02-08)
PROC: 10E0XZZ Delivery of Products of Conception, External Approach (ICD-10-PCS; principal; 2017-02-08)
PROC: 00HU33Z Insertion of Infusion Device into Spinal Canal, Percutaneous Approach (ICD-10-PCS; 2017-02-08)
PROC: 3E0234Z Introduction of Serum, Toxoid and Vaccine into Muscle, Percutaneous Approach (ICD-10-PCS; 2017-02-08)
DX: O69.81X0 Labor and delivery complicated by cord around neck, without compression, not applicable or unspecified (principal); O42.013 Preterm premature rupture of membranes, onset of labor within 24 hours of rupture, third trimester; O76 Abnormality in fetal heart rate and rhythm complicating labor and delivery; O99.354 Diseases of the nervous system complicating childbirth; G43.909 Migraine, unspecified, not intractable, without status migrainosus; O09.33 Supervision of pregnancy with insufficient antenatal care, third trimester; Z23 Encounter for immunization; Z3A.33 33 weeks gestation of pregnancy; Z37.0 Single live birth
CPT/HCPCS: 36415; 76816; 76819; 85014; 85018; 85025; 86850; 86900; 86901; 88307; 99211; A6250; G0463; J0290; J0702; J1364; J2405; J2590; J3010; J7120